=== PATIENT | female | born 1985 | race Two or more races ===

== ENCOUNTER 2021-09-06 18:57 | Emergency (ER) | payer OTHER ==
[~2021-09-06] VITALS: Ht 165.1 cm; Wt 51.3 kg
[2021-09-06] MEDS ORDERED: METHOCARBAMOL500 MG PO (20:22)
[2021-09-06] MEDS ORDERED: MEDROLPACK PO (20:22)
[2021-09-06] MEDS ORDERED: CLONAZEPAM1 MG PO (20:22)
[2021-09-06] MEDS ORDERED: VISTARIL50 MG PO (20:22)
== END 2021-09-06 20:41 ==
LOC: ER 18:57
DX: H04.123 Dry eye syndrome of bilateral lacrimal glands (principal); F41.9 Anxiety disorder, unspecified

== ENCOUNTER 2021-10-22 09:39 | Outpatient (CLI) | payer OTHER ==
[~2021-10-22 09:39] MED LIST: CLONAZEPAM1 MG PO; MEDROLPACK PO; METHOCARBAMOL500 MG PO; VISTARIL50 MG PO
== END 2021-10-22 10:08 | disposition home or self-care (01) ==
LOC: MRI 09:39
PROVIDERS: ATTEND Internal Medicine
DX: R13.19 Other dysphagia (principal); Z13.0 Encounter for screening for diseases of the blood and blood-forming organs and certain disorders involving the immune mechanism; Z80.8 Family history of malignant neoplasm of other organs or systems
CPT/HCPCS: 70552

== ENCOUNTER 2021-11-14 11:07 | Outpatient (CLI) | payer OTHER | END 2021-11-14 11:17 | disposition home or self-care (01) | LOC: SONOGRAMA 11:07 | PROVIDERS: ATTEND Internal Medicine Rheumatology | DX: E50.7 Other ocular manifestations of vitamin A deficiency (principal) ==